=== PATIENT | female | born 1950 | race Caucasian/White ===

== ENCOUNTER 2016-08-27 07:56 | Day surgery (SDC) | payer MEDICARE ==
[2016-08-27] VITALS (8 sets, daily range): BP systolic 100–151; BP diastolic 43–78; PULSE 61–74; RESP 16–20; TEMP 97.4–97.6; O2SAT 97–100
[~2016-08-27] VITALS: Ht 167.6 cm; Wt 64.1 kg
[~2016-08-27 07:56] MED LIST: BUSP15TA PO; CIPR750T10 PO; DEPA500T3 PO; PREM1.25 PO; VILAZODONE PO
[2016-08-27] MEDS ORDERED: TOPA100T11 PO (08:22)
[2016-08-27] MEDS ORDERED: ESTR1.25 PO (08:22)
[2016-08-27] MEDS ORDERED: DICL75TA PO (08:22)
[2016-08-27] MEDS ORDERED: CLON0.5T PO (08:22)
[2016-08-27] MEDS ORDERED: LIDOCAINE 1%/EPINEPHrine 1:100,000 SOLN 20 ML VIAL ONE (09:12)
[2016-08-27] MEDS ORDERED: fentaNYL CITRATE 250 MCG/5 ML AMP ONE (09:36)
[2016-08-27] MEDS ORDERED: MIDAZOLAM HCL 5 MG/5 ML VIAL ONE (09:36)
[2016-08-27] MEDS ORDERED: THROMBIN (TOPICAL) 5,000 UNIT VIAL ONE (09:52)
[2016-08-27] MEDS ORDERED: SODIUM CHLOR 0.9% 1000 ML INJ 1,000 ML IV SCH (10:00)
[2016-08-27] MEDS ORDERED: oxyCODONE/ACETAMINOPHEN 5 MG/325 MG TAB PO ONE (13:15)
--- NOTE | 2016-08-27 13:57 | RADRPT ---
EXAM DATE/TIME: 08/27/2016 09:42 [facility] COMPARISON: No previous studies available for comparison. INDICATIONS : Periaortic mass. SEDATION TIME: 30 minutes BIOPSY SITE: MEDICATION(S): 1.) 3 mg midazolam (Versed) ASSISTANT PROFESSOR OF CRIMINAL JUSTICE(s): Ariane Franks RN DEVICE(S): 1.) 18 gauge Parham blunt needle 2.) 20 gauge Tem[place] core biopsy needle MEDICAL HISTORY : None. SURGICAL HISTORY : Hysterectomy. ENCOUNTER: Subsequent ACUITY: 1 day PAIN SCORE: 0/10 LOCATION: Bilateral abdomen A total of three core specimen(s) were obtained and sent to the laboratory for pathologic evaluation. PROCEDURE: 1. CT guided periaortic mass biopsy. 2. Conscious sedation with continuous EKG and oximetry monitoring. 3. EKG and oximetry remained stable throughout the procedure. Prior to the procedure informed consent was obtained. Any appropriate prior imaging studies were rev iewed. Using automated exposure control and adjustment of the mA and/or kV according to patient size, radiat ion dose was kept as low as reasonably achievable to obtain optimal diagnostic quality images. The site was prepped in a sterile fashion. Full sterile technique was used, including cap, mask, silvino rile gloves and gown and a large sterile sheet. Hand hygiene and 2% chlorhexidine and/or betadine/al cohol prep was utilized per protocol for cutaneous antisepsis. The skin and subcutaneous tissues wer e infiltrated with local anesthetic solution. Under CT guidance an 18 gauge blunt needle was placed carefully down to the left-sided para-aortic ma ss would be guided in good position for cores were obtained. The tract was embolized with Gelfoam and thrombin. Follow-up CT scan reveals no hemorrhage. The patient tolerated the procedure well and there were no complications. The patient was returned to the Radiology Outpatient Unit in stable condition. CONCLUSION: Uncomplicated CT guided biopsy. Material was submitted in both formalin and RPMI. Juma Philippe MD FACR on August 27, 2016 at 13:54 Board Certified Radiologist. This report was verified electronically.
== END 2016-08-27 14:40 | disposition home or self-care (01) ==
LOC: HRAD 07:56 → HRIP 07:58 → EDSTATUS 08:00 → HRAD 14:40
PROVIDERS: ATTEND Surgery
DX: R22.9 Localized swelling, mass and lump, unspecified (principal); C82.90 Follicular lymphoma, unspecified, unspecified site
CPT/HCPCS: 49180; 77012; 88184; 88185; 88280; 88305; 88333; 99152; 99153; J2250; J3010; J7030; 88377

== ENCOUNTER 2016-10-26 06:19 | Day surgery (SDC) | payer MEDICARE ==
[~2016-10-26] VITALS: Ht 167.6 cm; Wt 65.5 kg
[~2016-10-26 06:19] MED LIST changes: -BUSP15TA PO; -CIPR750T10 PO; +CLON0.5T PO; -DEPA500T3 PO; +DICL75TA PO; +ESTR1.25 PO; -PREM1.25 PO; +TOPA100T11 PO; -VILAZODONE PO
[2016-10-26 06:50] VITALS: BP 136/84; PULSE 67; RESP 20; TEMP 97.5; O2SAT 99
[2016-10-26] MEDS ORDERED: SODIUM CHLOR 0.9% 1000 ML INJ 1,000 ML IV SCH (07:15)
[2016-10-26 07:26] LABS: BASOPHIL % 0.7 % (0.0-2.0); EOSINOPHIL # 0.2 TH/MM3 (0-0.4); EOSINOPHIL % 3.9 % (0.0-4.0); HEMATOCRIT 37.1 % (35.0-46.0); HEMO FLAGS DIFF FINAL; LYMPH % 46.6 % (9.0-44.0); LYMPHOCYTE # 2.2 TH/MM3 (1.0-4.8); MEAN CELL VOLUME 97.4 FL (80.0-100.0); MEAN CORPUSCULAR HEMOGLOBIN 31.5 PG (27.0-34.0); MEAN CORPUSCULAR HGB CONC 32.4 % (32.0-36.0); MONO % 6.3 % (0.0-8.0); NEUT % 42.5 % (16.0-70.0); PLATELET COUNT 234 TH/MM3 (150-450); RED BLOOD COUNT 3.81 MIL/MM3 (4.00-5.30); RED CELL DISTRIBUTION WIDTH 12.8 % (11.6-17.2); WHITE BLOOD COUNT 4.8 TH/MM3 (4.0-11.0)
[2016-10-26] MEDS ORDERED: LIDOCAINE 1%/EPINEPHrine 1:100,000 SOLN 20 ML VIAL ONE (07:50)
[2016-10-26] MEDS ORDERED: MIDAZOLAM HCL 5 MG/5 ML VIAL ONE (08:01)
[2016-10-26] MEDS ORDERED: fentaNYL CITRATE 250 MCG/5 ML AMP ONE (08:01)
[2016-10-26 08:55] VITALS: BP 105/57; PULSE 60; RESP 16; TEMP 97.5; O2SAT 95
[2016-10-26 09:10] VITALS: BP 97/56; PULSE 55; RESP 18; O2SAT 99
--- NOTE | 2016-10-26 09:13 | RADRPT ---
EXAM DATE/TIME: 10/26/2016 08:14 [facility] COMPARISON: CT NEEDLE BIOPSY ABDOMEN, August 27, 2016, 9:42. INDICATIONS : Lymphoma. SEDATION TIME: 30 minutes BIOPSY SITE: Left MEDICATION(S): 1.) 3 mg midazolam (Versed) IV 2.) 150 mcg fentanyl (Sublimaze) IV DEVICE(S): 1.) 11 gauge Bone biopsy needle MEDICAL HISTORY : Lymphoma. SURGICAL HISTORY : Hysterectomy. section. ENCOUNTER: Initial ACUITY: 1 day PAIN SCORE: 0/10 LOCATION: Left A total of one core specimen(s) were obtained and sent to the laboratory for pathologic evaluation. PROCEDURE: 1. CT guided bone marrow biopsy. 2. Conscious sedation with continuous EKG and oximetry monitoring. 3. EKG and oximetry remained stable throughout the procedure. Prior to the procedure informed consent was obtained. Any appropriate prior imaging studies were rev iewed. Using automated exposure control and adjustment of the mA and/or kV according to patient size , radiation dose was kept as low as reasonably achievable to obtain optimal diagnostic quality images . The site was prepped in a sterile fashion. Full sterile technique was used, including cap, mask, silvino rile gloves and gown and a large sterile sheet. Hand hygiene and 2% chlorhexidine and/or betadine/al cohol prep was utilized per protocol for cutaneous antisepsis. The skin and subcutaneous tissues wer e infiltrated with local anesthetic solution. With CT guidance the previously identified target was localized. Biopsy was performed using the presc ribed needle as above. Following biopsy marrow aspiration was performed with repeat puncture. Adequa te hemostasis was obtained with compression at the puncture site. Conscious sedation was performed with the prescribed dosages and duration as above in the presence of an independent trained radiology nurse to assist in the monitoring of the patient. EKG and oximetry remained stable throughout the procedure. The patient tolerated the procedure well and there were no complications. The patient was sent to Radiology Outpatient Unit in stable condition. CONCLUSION: 1. Uncomplicated CT guided bone marrow aspirate. 2. Uncomplicated CT guided bone marrow biopsy. Bakari Avelar MD on October 26, 2016 at 9:04 Board Certified Radiologist. This report was verified electronically.
[2016-10-26 09:34] LABS: BONE MARROW PROCESSING COMPLETE; IRON STAIN DONE; JENNER GIEMSA STAIN DONE
[2016-10-26 09:40] VITALS: BP 95/58; PULSE 54; RESP 16; O2SAT 97
[2016-10-26] MEDS ORDERED: oxyCODONE/ACETAMINOPHEN 5 MG/325 MG TAB PO PRN (10:00)
[2016-10-26 10:10] VITALS: BP 96/46; PULSE 51; RESP 16; O2SAT 98
[2016-10-26 10:40] VITALS: BP 108/58; PULSE 49; RESP 16; O2SAT 98
== END 2016-10-26 10:55 | disposition home or self-care (01) ==
LOC: HRAD 06:19 → HRIP 06:24 → HRAD 10:55
PROVIDERS: ATTEND Internal Medicine
DX: C82.83 Other types of follicular lymphoma, intra-abdominal lymph nodes (principal)
CPT/HCPCS: 38221; 77012; 85025; 85097; 88184; 88185; 88237; 88264; 88280; 88305; 88311; 88313; 88341; 88342; 99152; 99153; C1830; G0364; J2250; J3010; J7030

== ENCOUNTER 2016-11-12 06:01 | Day surgery (SDC) | payer MEDICARE ==
[~2016-11-12] VITALS: Ht 167.6 cm; Wt 66.0 kg
[2016-11-12] VITALS (8 sets, daily range): BP systolic 79–147; BP diastolic 46–83; PULSE 63–80; RESP 12–20; TEMP 97.5–97.7; O2SAT 96–99
[2016-11-12 07:17] LABS: AUTOMATED NEUTROPHIL # 2.9 TH/MM3 (1.8-7.7); BASOPHIL % 0.9 % (0.0-2.0); EOSINOPHIL # 0.2 TH/MM3 (0-0.4); EOSINOPHIL % 3.3 % (0.0-4.0); HEMATOCRIT 36.7 % (35.0-46.0); HEMO FLAGS DIFF FINAL; LYMPH % 39.3 % (9.0-44.0); LYMPHOCYTE # 2.3 TH/MM3 (1.0-4.8); MEAN CELL VOLUME 97.1 FL (80.0-100.0); MEAN CORPUSCULAR HEMOGLOBIN 33.3 PG (27.0-34.0); MEAN CORPUSCULAR HGB CONC 34.3 % (32.0-36.0); NEUT % 49.5 % (16.0-70.0); PLATELET COUNT 250 TH/MM3 (150-450); RED BLOOD COUNT 3.78 MIL/MM3 (4.00-5.30); RED CELL DISTRIBUTION WIDTH 13.3 % (11.6-17.2); WHITE BLOOD COUNT 5.8 TH/MM3 (4.0-11.0)
[2016-11-12] MEDS ORDERED: SODIUM CHLORIDE 0.9% 1000 ML IV SCH (07:30)
[2016-11-12] MEDS: VANCOMYCIN 1000 MG/NS 250 ML - implanted port/tunneled catheter IV SCH ×4 (07:42→10:11)
[2016-11-12] MEDS: MUPIROCIN 2% OINT 1 APPLIC/GM SYR EACH NARE SCH ×2 (07:43→10:12)
[2016-11-12] MEDS: CHLORHEXIDINE GLUCONATE 2 % 1 PACK (2 CLOTHS) TOPICAL SCH ×2 (07:43→10:13)
[2016-11-12] MEDS ORDERED: POVIDONE IODINE 5% (ANTISEPSIS KIT) 4 APPLICATIONS EACH NARE SCH (07:45)
[2016-11-12 07:46] LABS: APTT (PATIENT) 27.5 SEC (24.3-30.1); PROTHROMBIN TIME - PATIENT 10.6 SEC (9.8-11.6)
[2016-11-12] MEDS ORDERED: LEVOFLOXACIN 500 MG PREMIX INJ 100 ML IV ONE (08:12)
[2016-11-12] MEDS ORDERED: diphenhydrAMINE HCL 50 MG/ML VIAL ONE (08:13)
[2016-11-12] MEDS ORDERED: fentaNYL CITRATE 250 MCG/5 ML AMP ONE (08:13)
[2016-11-12] MEDS ORDERED: MIDAZOLAM HCL 5 MG/5 ML VIAL ONE (08:13)
[2016-11-12] MEDS ORDERED: LORazepam 2 MG/ML VIAL ONE (08:26)
[2016-11-12] MEDS ORDERED: LIDOCAINE 1%/EPINEPHrine 1:100,000 SOLN 20 ML VIAL ONE (08:43)
[2016-11-12] MEDS ORDERED: SODIUM CHLORIDE 0.9% FLUSH 10 ML FLUSH IVF PRN (10:15)
--- NOTE | 2016-11-12 11:21 | PD.RAD ---
Post Procedure Progress Note Pre Procedure Diagnosis: (1) Lymphoma Post Procedure Diagnosis: (1) Lymphoma Procedure Date: November 12, 2016 Supervising Radiologist: Alexei Ann Proceduralist/Assist: Elda Jerome, RT(R)(CV), Niecy Bui RT(R) Anesthesia: Local, Analgesia, Conscious Sedation Plan of Activity Patient to Unit: [facility] Patient Condition: Good See PACS Report for procedural detail/treatment Central Venous Access Device Procedure 1 Right Internal Jugular Infusaport Placement single lumen Slovenian: 8 Findings: Patient had seizure activity prior to procedure treated with 2mg IV Alexei Brown MD November 12, 2016 11:21
--- NOTE | 2016-11-12 12:40 | RADRPT ---
EXAM DATE/TIME: 11/12/2016 08:34 [facility] COMPARISON: No previous studies available for comparison. INDICATIONS : Patient with Lymphoma. Chemotherapy needed. MEDICAL HISTORY : 1.Migraines 2. Seizures 3. Arthritis 4. Deprssion 5. Anxiety SURGICAL HISTORY : 1. Appenectomy 2. Hysterectomy 3. c section ENCOUNTER: Initial ACUITY: 1 month PAIN SCORE: 0/10 FLUORO TIME: 0.4 minutes IMAGE SERIES: 1 SEDATION TIME: 45 minutes ACCESS: Right internal jugular vein SEDATION: 1.) 2 mg midazolam (Versed) IV 2.) 100 mcg fentanyl (Sublimaze) IV 3.) 2mg lorazepam (Ativan) IV Prophylactic antibiotics were administered with appropriate pre-procedure timing. Vancomycin within 2 hours of procedure, Ancef (or alternative) within 1 hour of procedure. DEVICE: 1. 8 Italian single lumen Bard Power Port PROCEDURE : 1. Continuous pulse oximetry and EKG monitoring. 2. Intravenous conscious sedation. 3. Ultrasound guidance for venous access. 4. Fluoroscopic guided implantable central venous port placement. The patient was placed supine. The neck was prepped in sterile fashion. Full sterile technique was u sed, including cap, mask, sterile gloves and gown, and a large sterile sheet. Hand hygiene and 2% ch lorhexidine Betadine was utilized per protocol for cutaneous antisepsis with appropriate dry time for site. The skin and subcutaneous tissues were infiltrated with local anesthetic solution. Under direct ultrasound guidance, central venous access was accomplished in the targeted vessel. The ultrasound images depicting access guidance were stored and saved to PACS for permanent record. A s ubcutaneous pocket was created using blunt dissection. The port was introduced to the pocket. The c atheter tubing was fed through a subcutaneous tunnel to the venotomy site. The catheter tubing was c ut to a suitable length and then was introduced through a valved Peel-Away sheath and positioned with catheter tubing tip at the cavo-atrial junction level. The pocket incision was closed with subcutic ular Vicryl suture. Steri-Strips were applied. The port was flushed and locked with heparin solutio n per protocol. Sterile dressing was applied to the site. The patient tolerated the procedure well. Conscious sedation was performed with the prescribed dosages and duration as above in the presence of an independent trained radiology nurse to assist in the monitoring of the patient. EKG and oximetry remained stable throughout the procedure. The patient tolerated the procedure well and there were no complications. The patient was sent to post anesthesia recovery in stable condition. CONCLUSION: Uncomplicated ultrasound and fluoroscopic guided implanted central venous port catheter placement as described in detail above. An 8 Italian Power port was placed. Alexei Ann MD on November 12, 2016 at 12:38 Board Certified Radiologist. This report was verified electronically.
== END 2016-11-12 12:45 | disposition home or self-care (01) ==
LOC: HROP 06:01 → HRIP 06:02 → HROP 12:45
PROVIDERS: ATTEND Internal Medicine
DX: Z45.2 Encounter for adjustment and management of vascular access device (principal); C85.90 Non-Hodgkin lymphoma, unspecified, unspecified site; F41.9 Anxiety disorder, unspecified
CPT/HCPCS: 36561; 76937; 77001; 85025; 85610; 85730; 99152; 99153; C1788; J1200; J1642; J1956; J2060; J2250; J3010; J3370; J7030; J7050